=== PATIENT | male | born 1985 | race Caucasian/White ===

== ENCOUNTER 2016-11-25 10:19 | Emergency (ER) | payer OTHER ==
[~2016-11-25] VITALS: Ht 182.9 cm; Wt 68.2 kg
[2016-11-25 10:29] VITALS: BP 138/83; PULSE 80; RESP 12; O2SAT 100
--- NOTE | 2016-11-25 10:55 | ED.REPORT ---
HPI-General Illness Date of Service Nov 25, 2016 ED Provider: Doc,Ed MD History of Present Illness: at work yesterday got poked by a needle around 1020 am. 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 needle hit right themar eminance had gloves on. , continued to work for an hour and then washed after 1 hour. last tdap about 3 years ago, believes he has had all of immunizations. primary care is vasil at [facility] Nursing Notes Stated Complaint: NEEDLE STICK AT WORK Chief Complaint: Post Exposure Body Fluids Nursing Notes Reviewed: Yes Allergies: Coded Allergies: No Known Allergies (Unverified , 11/25/16) General Time Seen by MD: 10:48 Chief Complaint Other (exposure) Hx Obtained From: Patient Sudden in Onset?: Yes Location: : Hand right Past Medical History Past Medical History Denies: Asthma, Diabetes mellitus Past Surgical History hernia times 2 and melonmia from right shoulder Smoking History Current Every Day Smoker (1 pack a day for 15 years) Social History Alcohol Use: Denies alcohol use Drug Use: Denies drug use Other Social History: Occupation lives with , works for the [employer] 11/25/2016 Ambulatory Status Independent Review of Systems Full Review of Systems Constitutional: Denies: Chills, Fatigue Ears / Nose / Throat: Denies: Ear drainage right Respiratory: Denies: Dyspnea on exertion GI: Denies: Abdominal pain Allergy / Immune: Denies: Allergic reaction Neurologic: Denies: Abnormal movement Physical Exam unable to visualize any puncture wound in skin Vital Signs Vital Signs Date Time Temp Pulse Resp B/P Pulse Ox O2 Delivery O2 Flow Rate FiO2 11/25/16 10:29 36.3 80 12 138/83 100 Room Air Initial VS: Reviewed, Vital signs normal General/Constitutional: Well-developed, Well-nourished Head / Eyes: Atraumatic, Normocephalic, PERRL ENT: Mucous membranes moist, Conjunctiva normal, No scleral icterus Neck: Supple, Non-tender, Full range of motion Respiratory: Breath sounds normal, Clear to auscultation, No respiratory distress Cardiovascular: Regular rate & rhythm, Heart sounds normal, Intact distal pulses Abdomen / GI: Soft, Non-tender, No guarding, No rebound, No distention Back: No CVA tenderness Lymphatic: No lymphadenopathy Extremities: Vascular intact, Neuro intact, No swelling, No tenderness Skin: Warm, Dry, No cyanosis Neurologic: Alert, Oriented, Nonfocal Psychiatric: Mood/affect normal, Behavior normal, Normal thought content General/Constitutional: Awake, Alert, No acute distress Head / Eyes: Atraumatic, Normocephalic, PERRL, EOMI ENT: Atraumatic, Airway patent, Mucous membranes moist, Pharynx NL Respiratory / Chest: Atraumatic, Breath sounds NL, Breath sounds = bilat, No respiratory distress Cardiovascular: Heart rate NL, Regular rhythm, Heart sounds NL Interpretation & Diagnostics Lab Results Interpretation Test 11/25/16 11:33 Re-Eval/Medical Decision Med Decision/Clinical Course 31 year old male presents for evualation of a needle stick 24 hours out from time of injury. Patient states the needle and syringe was covered in dirt. States the needle was about 1 inch long. He was raking leaves from around the bushes, cleaning up for spring. Raked all the leaves into a pile and then went to pick them up and was stuck. Had gloves on. As the HIV virus is very fragile, it is unlikely to present significant risk. The hepatitis virus is stonger but with exposure to the elements and patient reporting up to date on immunization, repeating testing is indicated. Discharge & Departure Primary Impression: Needle stick injury Disposition: Home Patient Instructions: Needle Stick Injuries (ED) Additional Instructions: Yopu state you are up to date on tdap and hepatitis immunizations. The HIV virus is a very fragile one, it does not survive well in the environment. The amount of dirt that was on the needle indicates it has been there for some time. At this time PEP is not indicated. Please do a repeat blood draw in 6 months to do survillence on HIV and hepatitis. Just an FYI, if you have a needle stick injury again, it is best to be seen as soon as possible after the injury. Referrals: SERENE CHINCHILLA MD (PCP) EDSupervising Provider for APC: Elizabeth Byers MD copies to: SERENE CHINCHILLA MD, Sue ARNP Nov 25, 2016 10:55
== END 2016-11-25 12:10 | disposition home or self-care (01) ==
LOC: SED 10:19
DX: S61.431A Puncture wound without foreign body of right hand, initial encounter (principal); W46.0XXA Contact with hypodermic needle, initial encounter; Y93.H9 Activity, other involving exterior property and land maintenance, building and construction; Y99.0 Civilian activity done for income or pay; Y92.59 Other trade areas as the place of occurrence of the external cause; F17.200 Nicotine dependence, unspecified, uncomplicated
CPT/HCPCS: 36415; 86706; 99283; G0433